=== PATIENT | male | born 1990 | race African-American/Black ===

== ENCOUNTER → 2023-11-18 | Emergency (ER) | payer SELFPAY ==
[~2023-11-18] VITALS: Ht 162.6 cm; Wt 80.0 kg
[~2023-11-18] MED LIST: METH-812 PO; NOCURR
[2023-11-18 11:19] VITALS: BP 129/99; PULSE 73; RESP 20; TEMP 98.3; O2SAT 100
[2023-11-18] MEDS: METHOCARBAMOL 500 MG TABLET PO ONE (13:22)
[2023-11-18] MEDS: ACETAMINOPHEN 325 MG TABLET PO ONE (13:23)
[2023-11-18] MEDS: KETOROLAC TROMETHAMINE 30 MG/ML VIAL IM ONE (13:23)
[2023-11-18] MEDS: LIDOCAINE 5% TRANSDERMAL PATCH TD ONE (13:23)
== END | disposition still patient (30) ==
LOC: WELLNESS 11:13
DX: M54.50 Low back pain, unspecified (principal); F12.90 Cannabis use, unspecified, uncomplicated
CPT/HCPCS: 99284; 72100; 72220; 96372; J1885

== ENCOUNTER 2024-04-12 12:09 | Emergency (ER) | payer SELFPAY ==
[~2024-04-12] VITALS: Ht 175.3 cm; Wt 72.0 kg
[~2024-04-12 12:09] MED LIST changes: -NOCURR
[2024-04-12 17:27] LABS: APPEARANCE,URINE CLEAR (CLEAR); BILIRUBIN,URINE NEGATIVE (NEGATIVE); COLOR,URINE LIGHT YELLOW (YELLOW); GLUCOSE, URINE (UA) NEGATIVE (NEGATIVE); KETONES,URINE 40-60 mg/dL (NEGATIVE); LEUKOCYTE ESTERASE ,URINE NEGATIVE (NEGATIVE); NITRATE,URINE NEGATIVE (NEGATIVE); OCCULT BLOOD,URINE NEGATIVE (NEGATIVE); PH,URINE 6.5 (5.0-8.0); PROTEIN,URINE TRACE mg/dL (NEGATIVE); SPECIFIC GRAVITIY, URINE 1.024 (1.003-1.030)
[2024-04-12] MEDS: SULFAMETHOX/TRIMETH DS 800-160 MG/TABLET PO ONE (17:59)
[2024-04-12] MEDS: HYDROCODONE/ACETAMINOPHEN 5-325 MG TABLET PO ONE (17:59)
[2024-04-12] MEDS: POVIDONE-IODINE 10% 15 ML SOLUTION UD TP ONE (17:59)
[2024-04-12] MEDS: CEPHALEXIN MONOHYDRATE 500 MG CAPSULE PO ONE (17:59)
[2024-04-12 19:43] VITALS: BP 167/67; PULSE 72; RESP 18; TEMP 98.2; O2SAT 100
[2024-04-12] MEDS ORDERED: SULF-261 PO (19:44)
[2024-04-12] MEDS ORDERED: CEPH-558 PO (19:44)
[2024-04-12] MEDS ORDERED: IBUP-1492 PO (19:44)
[2024-04-12] MEDS ORDERED: HYDR-4062 PO (19:44)
== END 2024-04-12 20:55 | disposition home or self-care (01) ==
LOC: EMS 12:09
DX: N49.2 Inflammatory disorders of scrotum (principal); F12.90 Cannabis use, unspecified, uncomplicated
CPT/HCPCS: 55100; 81003; 76870; 99284; A4247